=== PATIENT | male | born 1955 | race Two or more races ===

== ENCOUNTER 2019-03-15 15:21 | Emergency (ER) | payer MEDICAID ==
[~2019-03-15] VITALS: Ht 154.9 cm; Wt 60.0 kg
[2019-03-15 15:33] VITALS: BP 125/70
== END 2019-03-15 20:21 | disposition left against medical advice (07) ==
LOC: ER 15:21
DX: M54.5 Low back pain (principal); Z53.21 Procedure and treatment not carried out due to patient leaving prior to being seen by health care provider

== ENCOUNTER 2019-11-23 12:11 | Emergency (ER) | payer MEDICAID ==
[~2019-11-23] VITALS: Ht 165.1 cm; Wt 73.0 kg
[2019-11-23] MEDS ORDERED: TETRACAINE 0.5% OPHTH DROPS 4ML BOTHEYE ONE (15:15)
[2019-11-23] MEDS ORDERED: FLUORESCEIN SODIUM 1MG/STRIP BOTHEYE ONE (15:15)
[2019-11-23 16:47] VITALS: BP 122/67
== END 2019-11-23 16:18 | disposition home or self-care (01) ==
LOC: ER 12:11
DX: L03.213 Periorbital cellulitis (principal); H10.89 Other conjunctivitis; Z91.81 History of falling
CPT/HCPCS: 99283

== ENCOUNTER 2019-12-22 10:27 | Emergency (ER) | payer MEDICAID ==
[~2019-12-22] VITALS: Ht 154.9 cm; Wt 65.0 kg
[2019-12-22] MEDS ORDERED: TETANUS, DIPHTHERIA, PERTUSSIS VAC/PF 0.5ML (>7YR OLD) IM ONE (11:00)
[2019-12-22 11:39] VITALS: BP 135/75
== END 2019-12-22 11:40 | disposition home or self-care (01) ==
LOC: ER 10:27
DX: S61.216A Laceration without foreign body of right little finger without damage to nail, initial encounter (principal); W26.8XXA Contact with other sharp object(s), not elsewhere classified, initial encounter; Y93.89 Activity, other specified; Y92.89 Other specified places as the place of occurrence of the external cause; Y99.8 Other external cause status
CPT/HCPCS: 12001; 90471; 90715; 99283

== ENCOUNTER 2019-12-24 14:42 | Emergency (ER) | payer MEDICAID ==
[~2019-12-24] VITALS: Ht 170.2 cm; Wt 75.0 kg
[2019-12-24] MEDS ORDERED: IBUPROFEN 400MG TABLET PO ONE (19:45)
[2019-12-24] MEDS ORDERED: ACETAMINOPHEN 325MG TABLET PO ONE (19:45)
[2019-12-25 03:56] VITALS: BP 108/66
== END 2019-12-25 03:59 | disposition home or self-care (01) ==
LOC: ER 15:02
DX: S39.012A Strain of muscle, fascia and tendon of lower back, initial encounter (principal); S86.812A Strain of other muscle(s) and tendon(s) at lower leg level, left leg, initial encounter; W01.0XXA Fall on same level from slipping, tripping and stumbling without subsequent striking against object, initial encounter; F10.10 Alcohol abuse, uncomplicated; Y90.9 Presence of alcohol in blood, level not specified; Y93.89 Activity, other specified; Y92.89 Other specified places as the place of occurrence of the external cause
CPT/HCPCS: 72100; 73560; 99285